=== PATIENT | female | born 1995 | race Caucasian/White ===

== ENCOUNTER 2016-09-11 10:36 | Emergency (ER) | payer OTHER ==
[2016-09-11] MEDS ORDERED: IBUPROFEN 600 MG TABLET PO STA (11:54)
[2016-09-11] MEDS ORDERED: DEXAMETHASONE 10 MG/ML VIAL PO STA (11:54)
[2016-09-11] MEDS ORDERED: CHERRY SYRUP 10 ML UDC PO ONE (11:56)
[2016-09-11] MEDS ORDERED: DEXAMETHASONE 10 MG/ML VIAL ONE (11:56)
[2016-09-11] MEDS ORDERED: IBUPROFEN 600 MG TABLET PO ONE (11:56)
== END 2016-09-11 12:35 | disposition home or self-care (01) ==
DX: N30.10 Interstitial cystitis (chronic) without hematuria (principal)
CPT/HCPCS: 80053; 81001; 81025; 83690; 85025; 87086; 99283; A9270

== ENCOUNTER 2016-10-18 03:41 | Emergency (ER) | payer OTHER | END 2016-10-18 04:09 | disposition home or self-care (01) | DX: B80 Enterobiasis (principal); F17.200 Nicotine dependence, unspecified, uncomplicated ==

== ENCOUNTER 2016-12-19 12:48 | Emergency (ER) | payer OTHER ==
[2016-12-19 12:55] VITALS: BP 141/90
--- NOTE | 2016-12-19 13:02 | ED Physician Documentation ---
PD HPI ABD PAIN - Stated complaint Stated Complaint: FEMALE - Chief complaint Chief Complaint: Abd Pain - History obtained from History obtained from: Patient - History of Present Illness Timing - onset: Other (In September she had a bad UTI which was treated in [facility]. She has been having on and off issues ever since and is being seen here several times. Had a CT which was negative. Most recently she was diagnosed with bacterial vaginosis and treated with MetroGel which helped while she was on it but as soon as it was discontinued, about a week ago, she developed severe burning especially with urination again. She does not really have any discharge.) Review of Systems Constitutional: denies: Fever, Chills GI: denies: Abdominal Pain, Nausea, Vomiting, Diarrhea : reports: Dysuria, Frequency PD PAST MEDICAL HISTORY - Past Medical History Past Medical History: Yes : None Other Past Medical History: BV - Past Surgical History Past Surgical History: Yes - Present Medications Home Medications: Ambulatory Orders Medication Instructions Recorded Confirmed Lactobacillus Acidophilus 1 tab DAILY 12/19/16 12/19/16 [Probiotic Acidophilus] Metronidazole [Flagyl] 500 mg PO BID #14 tablet 12/19/16 - Allergies Allergies/Adverse Reactions: Allergies Allergy/AdvReac Type Severity Reaction Status Date / Time No Known Drug Allergies Allergy Verified 09/11/16 10:40 - Social History Does the pt smoke?: Yes Smoking Status: Current every day smoker Does the pt drink ETOH?: No Does the pt have substance abuse?: No - Immunizations Immunizations are current?: Yes - POLST Patient has POLST: No PD ED PE NORMAL - Vitals Vital signs reviewed: Yes - General General: Alert and oriented X 3, No acute distress - Abdomen Abdomen: Soft, Non tender - Neuro Neuro: Alert and oriented X 3, Normal speech - Psych Psych: Normal mood, Normal affect Results - Vitals Vitals: Vital Signs - 24 hr 12/19/16 12:53 Temperature 36.7 C Heart Rate 99 Respiratory 18 Rate Blood Pressure 141/90 H O2 Saturation 100 Oxygen O2 Source Room air - Labs Labs: Laboratory Tests 12/19/16 12:55 Urine Color YELLOW Urine Clarity CLEAR Urine pH 5.5 Ur Specific [place] 1.010 Urine Protein NEGATIVE Urine Glucose (UA) NEGATIVE Urine Ketones NEGATIVE Urine Occult Blood NEGATIVE Urine Nitrite NEGATIVE Urine Bilirubin NEGATIVE Urine Urobilinogen 0.2 (NORMAL) Ur Leukocyte Esterase NEGATIVE Ur Microscopic Review NOT INDICATED Urine Culture Comments NOT INDICATED Urine HCG, Qual NEGATIVE PD MEDICAL DECISION MAKING - ED course ED course: 21-year-old woman with urinary burning and recent diagnosis of BV, sounds like she failed MetroGel. She declined pelvic examination here after discussion of the benefits for diagnosis and would prefer to follow-up with her physician for recheck if not improved on oral metronidazole. Departure - Departure Disposition: Home, Self Care Clinical Impression: BV (bacterial vaginosis) Condition: Good Record reviewed to determine appropriate education?: Yes Instructions: ED Vaginosis Bacterial Prescriptions: Metronidazole [Flagyl] 500 mg PO BID #14 tablet Comments: Follow-up with your flight surgeon in 3-5 days if not better. Return if worse. Your blood pressure was elevated today on check into the emergency department. This does not mean that you have hypertension, it is a common phenomenon to come to the emergency department and have elevated blood pressure. I recommend that she see her primary care physician within the week to have it rechecked when you are feeling better.
[2016-12-19 13:10] LABS: BILIRUBIN,URINE NEGATIVE (NEGATIVE); PH,URINE 5.5 PH (5.0-7.5)
[2016-12-19 13:15] LABS: HCG UR QUAL NEGATIVE; UA CHARGE (STRIP ONLY) YES; UR CULTURE IF IND NOT INDICATED
== END 2016-12-19 13:33 | disposition home or self-care (01) ==
LOC: ED 12:48
DX: N76.0 Acute vaginitis (principal); B96.89 Other specified bacterial agents as the cause of diseases classified elsewhere; F17.200 Nicotine dependence, unspecified, uncomplicated
CPT/HCPCS: 81001; 81003; 81025; 87086; 99283

== ENCOUNTER 2017-03-06 13:47 | Emergency (ER) | payer OTHER ==
--- NOTE | 2017-03-06 14:47 | ED Physician Documentation ---
PD HPI ABD PAIN - Stated complaint Stated Complaint: 7 WKS PREG/BLEEDING - Chief complaint Chief Complaint: Abd Pain - History obtained from History obtained from: Patient - History of Present Illness Timing - onset: Other ( at 7 weeks gestation with a small amount of vaginal bleeding today and continued symptoms of BV despite repeated treatment. 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, she is active duty .) Review of Systems Constitutional: denies: Fever, Chills GI: denies: Abdominal Pain, Nausea, Vomiting : denies: Dysuria, Frequency, Hesitancy, Incontinent PD PAST MEDICAL HISTORY - Past Medical History Past Medical History: No : None - Past Surgical History Past Surgical History: Yes - Present Medications Home Medications: Ambulatory Orders Medication Instructions Recorded Confirmed Ondansetron [Ondansetron Odt] 4 mg PO DAILY PRN 03/06/17 03/06/17 Pnv No.122/Iron/Folic Acid 1 each PO DAILY 03/06/17 03/06/17 [ Multi Tablet] - Allergies Allergies/Adverse Reactions: Allergies Allergy/AdvReac Type Severity Reaction Status Date / Time No Known Drug Allergies Allergy Verified 03/06/17 13:56 - Social History Does the pt smoke?: No Smoking Status: Never smoker Does the pt drink ETOH?: No Does the pt have substance abuse?: No - Immunizations Immunizations are current?: Yes - POLST Patient has POLST: No PD ED PE NORMAL - Vitals Vital signs reviewed: Yes - General General: Alert and oriented X 3, No acute distress - Abdomen Abdomen: Soft, Non tender, Other (Bedside ultrasound demonstrates single live intrauterine with a heart rate of 130 and no free fluid.) - Female Female : Petrophysical Engineer present (Karla Cornejo RN), Other (cervicitis with modeerate white dischg) - Neuro Neuro: Alert and oriented X 3, Normal speech - Psych Psych: Normal mood, Normal affect Results - Vitals Vitals: Vital Signs - 24 hr 03/06/17 03/06/17 13:51 16:20 Temperature 36.8 C 36.7 C Heart Rate 106 H 86 Respiratory 16 14 Rate Blood Pressure 134/80 H 120/62 O2 Saturation 99 98 Oxygen O2 Source Room air - Labs Labs: Microbiology 03/06/17 15:33 BORIS Preparation - Final Fluid - Vaginal 03/06/17 15:33 Wet Prep - Final Cervix Laboratory Tests 03/06/17 15:00 Urine Color YELLOW Urine Clarity HAZY Urine pH 6.0 Ur Specific [place] 1.025 Urine Protein NEGATIVE Urine Glucose (UA) NEGATIVE Urine Ketones NEGATIVE Urine Occult Blood TRACE-INTA Urine Nitrite NEGATIVE Urine Bilirubin NEGATIVE Urine Urobilinogen 0.2 (NORMAL) Ur Leukocyte Esterase TRACE H Urine RBC 0-5 Urine WBC 4-5 Ur Squamous Epith Cells MOD Squamous H Urine Bacteria Few Urine Mucus Moderate Strands Ur Microscopic Review INDICATED Urine Culture Comments NOT INDICATED PD MEDICAL DECISION MAKING - ED course ED course: 22-year-old G1 with a small amount of vaginal bleeding in and cervicitis with repeated treatments for BV.. Wet mount and BORIS were negative. She will be treated for undifferentiated cervicitis with Rocephin and Zithromax. She is Rh- and is given RhoGam. She does have an intrauterine on bedside ultrasound. Departure - Departure Disposition: 01 Home, Self Care Clinical Impression: Cervicitis, Threatened Condition: Good Record reviewed to determine appropriate education?: Yes Instructions: ED Miscarriage Poss, ED VD Cervicitis Treated Comments: Call your doctor to arrange a follow-up appointment, make the next available appointment. In the interim, return anytime if worse or if new symptoms develop.
[2017-03-06 15:09] LABS: BILIRUBIN,URINE NEGATIVE (NEGATIVE)
[2017-03-06 15:29] LABS: UA w/ MICROSCOPIC CHARGE YES
[2017-03-06 15:45] LABS: UR CULTURE IF IND NOT INDICATED
[2017-03-06] MEDS ORDERED: RHO(D) IMMUNE GLOBULIN 300 MCG SYRINGE IM ONE (16:36)
[2017-03-06] MEDS ORDERED: AZITHROMYCIN 250 MG TABLET PO STA (16:36)
[2017-03-06] MEDS ORDERED: cefTRIAXone 250 MG VIAL IM STA (16:36)
[2017-03-06] MEDS ORDERED: cefTRIAXone 250 MG VIAL ONE (17:07)
[2017-03-06] MEDS ORDERED: LIDOCAINE 1% 2 ML VIAL ONE (17:07)
[2017-03-06] MEDS ORDERED: AZITHROMYCIN 250 MG TABLET PO ONE (17:07)
[2017-03-06 17:20] VITALS: BP 124/63
== END 2017-03-06 17:18 | disposition home or self-care (01) ==
LOC: ED 13:47
DX: O23.511 Infections of cervix in pregnancy, first trimester (principal); O20.0 Threatened abortion; Z3A.01 Less than 8 weeks gestation of pregnancy
CPT/HCPCS: 36415; 81001; 86900; 86901; 87210; 87220; 87491; 87591; 96372; 99283; A9270; 81003; 87086

== ENCOUNTER 2017-10-14 19:26 | Outpatient (CLI) | payer OTHER ==
[2017-10-14 20:00] VITALS: BP 121/80
== END 2017-10-14 21:15 | disposition home or self-care (01) ==
LOC: WFO 19:26 → FBP 19:28 → WFO 21:15
PROVIDERS: ATTEND Obstetrics & Gynecology
DX: Z34.03 Encounter for supervision of normal first pregnancy, third trimester (principal)
CPT/HCPCS: 99212

== ENCOUNTER 2017-10-20 07:13 | Inpatient (IN) | payer OTHER ==
[2017-10-20] MEDS ORDERED: SODIUM CHLORIDE FLUSH 0.9% 10 ML SYRINGE IVP PRN (08:07)
[2017-10-20 08:50] LABS: BASOPHILS # (AUTO) 0.1 10^3/uL (0.0-0.1); BASOPHILS % (AUTO) 0.5 %; EOSINOPHILS # (AUTO) 0.1 10^3/uL (0.0-0.7); EOSINOPHILS % (AUTO) 0.5 %; HGB - HEMOGLOBIN 13.6 g/dL (12.0-16.0); LYMPHOCYTES # (AUTO) 1.8 10^3/uL (1.5-3.5); LYMPHOCYTES % (AUTO) 12.8 %; MEAN CORPUSCULAR HEMOGLOBIN 30.7 pg (27.0-31.0); MEAN CORPUSCULAR HGB CONC 34.9 g/dL (32.0-36.0); MEAN PLATELET VOLUME 8.7 fL (7.9-10.8); MONOCYTES # (AUTO) 0.9 10^3/uL (0.0-1.0); MONOCYTES % (AUTO) 6.7 %; NEUTROPHILS # (AUTO) 10.9 10^3/uL (1.5-6.6); NEUTROPHILS % (AUTO) 79.5 %; PLT - PLATELET COUNT 192 10^3/uL (130-450); RED BLOOD COUNT 4.43 10^6/uL (4.20-5.40); RED CELL DISTRIBUTION WIDTH 13.3 % (12.0-15.0); WHITE BLOOD COUNT 13.7 x10^3/uL (4.8-10.8)
[2017-10-20] MEDS ORDERED: miSOPROStol 200 MCG TABLET ONE (11:46)
[2017-10-20] MEDS ORDERED: LIDOCAINE 1% 50 ML MDV ONE (11:46)
[2017-10-20] MEDS ORDERED: OXYTOCIN/SODIUM CHLORIDE 500 ML IV ONE ×2 (11:46→18:35)
[2017-10-20] MEDS: LACTATED RINGERS 1,000 ML IV SCH ×2 (11:56→13:06)
[2017-10-20] MEDS: SODIUM CHLORIDE FLUSH 0.9% 10 ML SYRINGE IVP SCH ×2 (11:56→20:21)
--- NOTE | 2017-10-20 12:09 | PROVIDER PROGRESS NOTE ---
Labor Progress Note - Uterine Monitoring Uterine Monitoring Mode: positive: External toco Contraction Frequency (min/apart): 3 Contraction Intensity: positive: Strong Uterine Resting Tone: positive: Soft - Monitoring Monitor Mode: positive: External ultrasound Heart Rate Baseline: 130 Heart Rate Variability: positive: Moderate (6-25 bmp) Accelerations: positive: Present, 15x15 Decelerations: positive: None Strip Review: positive: Category I - Vaginal Exam Dilation (in cm): 6 Effacement (%): 100 - Labor Progress Note Labor Progress Note/Additional Text: Pt is spontaneously with dilatation. requests epidural.
[2017-10-20] MEDS ORDERED: BUPIVACAINE 0.75% MPF 30 ML VIAL ONE (12:49)
[2017-10-20] MEDS ORDERED: fent/BUPIV 2 MCG/0.125% 250 ML EP ONE (12:49)
[2017-10-20] MEDS ORDERED: fent/BUPIV 2 MCG/0.125% 250 ML EP PRN (13:21)
[2017-10-20] MEDS ORDERED: LACTATED RINGERS 500 ML IV ONE (13:21)
[2017-10-20] MEDS ORDERED: ONDANSETRON 4 MG/2 ML VIAL IVP PRN (13:21)
[2017-10-20] MEDS ORDERED: NALBUPHINE 20 MG/ML AMP IVP PRN (13:21)
[2017-10-20] MEDS ORDERED: ePHEDrine 50 MG/ML VIAL IVP PRN (13:21)
[2017-10-20] MEDS ORDERED: diphenhydrAMINE INJ 50 MG/ML VIAL IVP PRN (13:21)
[2017-10-20] MEDS ORDERED: METOCLOPRAMIDE 10 MG/2 ML VIAL IVP PRN (13:21)
[2017-10-20] MEDS ORDERED: NALOXONE 0.4 MG/ML VIAL IVP PRN (13:21)
--- NOTE | 2017-10-20 17:21 | PROVIDER PROGRESS NOTE ---
Labor Progress Note - Uterine Monitoring Uterine Monitoring Mode: positive: External toco Contraction Frequency (min/apart): 3-4 Contraction Intensity: positive: Strong Uterine Resting Tone: positive: Soft - Monitoring Monitor Mode: positive: External ultrasound Heart Rate Baseline: 125 Heart Rate Variability: positive: Moderate (6-25 bmp) Accelerations: positive: Present, 15x15 Decelerations: positive: None Strip Review: positive: Category I - Vaginal Exam Dilation (in cm): c Effacement (%): c Station: 2 Cervical Position: Anterior ([place]) - Labor Progress Note Labor Progress Note/Additional Text: AROM clear at about 1545 will start pushing
[2017-10-20] MEDS ORDERED: diphenhydrAMINE 25 MG CAPSULE PO PRN (18:31)
[2017-10-20] MEDS ORDERED: WITCH HAZEL/GLYCERIN 1 EACH MED..PAD TOP PRN (18:31)
[2017-10-20] MEDS ORDERED: HYDROCORTISONE 1% CREAM 28 GM TUBE PR PRN (18:31)
[2017-10-20] MEDS ORDERED: OXYTOCIN/SODIUM CHLORIDE 250 ML IV ONE (18:31)
--- NOTE | 2017-10-20 18:38 | DELIVERY NOTE ---
Delivery Note - Infant Delivery Method Infant Delivery Method: positive: Spontaneous vaginal delivery - Presentation Presentation: positive: Vertex, HAFSA - right occiput anterior - Nuchal Cord Nuchal Cord: positive: Present (times one. Delivered thru the cord.) - Anesthetic Anesthetic Type: Anesthetic: positive: Lidocaine - 1% plain (12 ml for MLE) - Amniotic Fluid Description Amniotic Fluid Description: positive: Clear - Episiotomy Type Episiotomy Type: positive: Left mediolateral (Second degree) - Laceration Laceration: positive: Vaginal (Bilateral lateral posterior vagianl) - Suture Suture Type: positive: Vicryl Suture Size: positive: 3-0 - Delivery Outcome Delivery Outcome: positive: Livebirth (female) - University: positive: Placed in direct skin contact with mother, Bulb syringe, Stimulated, Warmed, [place] used University sex: positive: Female (Apgars 9/9) - Cord Cord: positive: 3 vessels - Placenta Placenta: positive: Intact, Spontaneous - Estimated Blood Loss Estimated Blood Loss (in cc): 400 - Delivery Comments (Free Text/Narrative) Delivery Comments (Free Text/Narrative): Pt reached complete at 1715, strong pushing and at 17 47 following a 32 min second stage a live female was delivered with very tight introitis. Left MLE cut with out extensions. because of tight nucal cord which was unable to be reduced the baby was delivered thru the cord. Placenta soon followed complete. repaired of the vagianl wall laceration and episotomy with 3-0 vicril. EBL 400 ml. baby weighed 6lb 12oz
[2017-10-20] MEDS ORDERED: LACTATED RINGERS 1,000 ML IV SCH (19:00)
--- NOTE | 2017-10-20 19:00 | HISTORY & PHYSICAL EXAMINATION ---
Admit History - Instructions [place]/Slash: -Left hand click circles element as positive or present. -Right hand click slashes element as negative or not present. - Visit Reason Visit Reason: Contractions - : 1 Parity: 0 Premature: 0 Ectopic: 0 : 0 Care: positive: [place] Smoking Status: Never smoker - Mother's Labs Mother's Blood Type: positive: O Mother's RH: positive: Negative (recived Rhogam) GBS: positive: Group B Step Negative Rubella Status: positive: Immune (50 gm 153. # hr Gtt 70,151,112,109) Meds/Allgy - Home Medications Home Medications: Ambulatory Orders Medication Instructions Recorded Confirmed Ondansetron [Ondansetron Odt] 4 mg PO DAILY PRN 03/06/17 03/06/17 Pnv No.122/Iron/Folic Acid 1 each PO DAILY 03/06/17 03/06/17 [ Multi Tablet] - Allergies Allergies/Adverse Reactions: Allergies Allergy/AdvReac Type Severity Reaction Status Date / Time No Known Drug Allergies Allergy Verified 03/06/17 13:56 Physical - Abdominal Exam Vital Signs: Temp Pulse Resp BP Pulse Ox 36.9 C 83 16 115/72 10/20/17 07:20 10/20/17 07:20 10/20/17 07:20 10/20/17 07:20 Contraction Intensity: positive: Strong Uterine Resting Tone: positive: Soft - Monitoring Strip Review: positive: Category I - Presentation Presentation: positive: Vertex - Vaginal Exam Membranes: positive: Membranes intact Dilation (in cm): 4 Effacement (%): 100% Station: positive: -3 - Speculum Exam Findings: positive: Other - Other Notes Labor Progress Note/Additional Text: Pt is a 22 yo EDC 24 Oct 2017, 39.3 weeks Active labor. Ob course unremarkable except for elivated 50 gm with normal 3 hr GTT. Pt is O - adn recieved rhogam. Pt reports FOB Rh negative. L&D at [facility] closed so pt presents to [facility] for Delivery.
[2017-10-20] MEDS: ACETAMINOPHEN 500 MG TABLET PO SCH (19:59)
[2017-10-20] MEDS: IBUPROFEN 800 MG TABLET PO SCH (19:59)
[2017-10-20] MEDS: HYDROCORTISONE/PRAMOXINE 10 GM PR PRN (20:00)
[2017-10-20] MEDS: oxyCODONE 5 MG TABLET PO PRN (20:27)
[2017-10-20] MEDS: DOCUSATE SODIUM 100 MG CAPSULE PO SCH (21:30)
[2017-10-20] MEDS ORDERED: SODIUM CHLORIDE FLUSH 0.9% 10 ML SYRINGE ONE (23:41)
[2017-10-21] MEDS: IBUPROFEN 800 MG TABLET PO SCH ×3 (01:38→13:36)
[2017-10-21] MEDS: ACETAMINOPHEN 500 MG TABLET PO SCH ×3 (04:37→17:30)
[2017-10-21 06:24] LABS: BASOPHILS % (AUTO) 0.3 %; EOSINOPHILS # (AUTO) 0.1 10^3/uL (0.0-0.7); EOSINOPHILS % (AUTO) 0.4 %; HGB - HEMOGLOBIN 10.5 g/dL (12.0-16.0); LYMPHOCYTES # (AUTO) 1.7 10^3/uL (1.5-3.5); MEAN CORPUSCULAR HEMOGLOBIN 30.4 pg (27.0-31.0); MEAN CORPUSCULAR HGB CONC 33.9 g/dL (32.0-36.0); MEAN CORPUSCULAR VOLUME 89.8 fL (81.0-99.0); MEAN PLATELET VOLUME 8.9 fL (7.9-10.8); MONOCYTES # (AUTO) 1.2 10^3/uL (0.0-1.0); MONOCYTES % (AUTO) 10.1 %; NEUTROPHILS # (AUTO) 9.2 10^3/uL (1.5-6.6); NEUTROPHILS % (AUTO) 75.2 %; PLT - PLATELET COUNT 158 10^3/uL (130-450); RED BLOOD COUNT 3.45 10^6/uL (4.20-5.40); RED CELL DISTRIBUTION WIDTH 13.2 % (12.0-15.0); WHITE BLOOD COUNT 12.2 x10^3/uL (4.8-10.8)
[2017-10-21] MEDS: SIMETHICONE CHEW 80 MG TABLET PO SCH ×3 (07:50→17:30)
[2017-10-21] MEDS: DOCUSATE SODIUM 100 MG CAPSULE PO SCH (07:50)
--- NOTE | 2017-10-21 08:58 | PROVIDER PROGRESS NOTE ---
Subjective - Prog Note Date Prog Note Date: 10/21/17 Prog Note Time: 08:56 - Subjective Pt reports feeling: Improved (Pain 06/22. Pt is not breast feeding reviewed reasions to breastfeed. [place] improving) Objective - Vital Signs/Intake & Output Reviewed Vital Signs: Yes Intake & Output: Intake & Output 10/18/17 10/19/17 10/20/17 10/21/17 23:59 23:59 23:59 23:59 Intake Total 4860 Output Total 2180 550 Balance 2680 -550 - Objective General Appearance: positive: No acute distress, Alert Respiratory: positive: Chest non-tender, No respiratory distress, Breath sounds nml Cardiovascular: positive: Regular rate & rhythm, No murmur, No gallop Abdomen: positive: Non-tender, Mass (U-2) Back: negative: CVA tenderness (R), CVA tenderness (L) Extremities: positive: Calf tenderness, Sarah's sign/cords Neurologic/Psychiatric: positive: Oriented x3, CN's nml (2-12) - Lab Results Fish Bones: 10/21/17 05:31 Other Labs: Lab Results x24hrs 10/21/17 10/20/17 10/20/17 Range/Units 05:31 08:28 08:28 WBC 12.2 H 13.7 H (4.8-10.8) x10^3/uL RBC 3.45 L 4.43 (4.20-5.40) 10^6/uL Hgb 10.5 L 13.6 (12.0-16.0) g/dL Hct 31.0 L 39.0 (37.0-47.0) % MCV 89.8 88.0 (81.0-99.0) fL MCH 30.4 30.7 (27.0-31.0) pg MCHC 33.9 34.9 (32.0-36.0) g/dL RDW 13.2 13.3 (12.0-15.0) % Plt Count 158 192 (130-450) 10^3/uL MPV 8.9 8.7 (7.9-10.8) fL Neut # 9.2 H 10.9 H (1.5-6.6) 10^3/uL Lymph # 1.7 1.8 (1.5-3.5) 10^3/uL [place] # 1.2 H 0.9 (0.0-1.0) 10^3/uL Eos # 0.1 0.1 (0.0-0.7) 10^3/uL Baso # 0.0 0.1 (0.0-0.1) 10^3/uL Absolute Nucleated RBC 0.00 0.00 x10^3/uL Nucleated RBC % 0.0 0.0 /100WBC Blood Type O NEGATIVE Antibody Screen POSITIVE Antibody Identification See Comments Assessment/Plan - Problem List (1) (spontaneous vaginal delivery) Impression: Pt is doing well. Pt does not need Contraception.
--- NOTE | 2017-10-21 11:17 | ANESTHESIA POST OP EVALUATION ---
Anesthesia Post Eval - Post Anesthesia Eval CV Function Including HR & BP: positive: Stable Pain Control: positive: Adequate Nausea & Vomiting: positive: Negative Mental Status: positive: Appropriate Anesthesia Complications: positive: None (Patient resting comfortably with baby at side. States was uneventful to the best of her knowledge and that she was happy with her epidural. Denies pain at site.)
[2017-10-21] MEDS: oxyCODONE 5 MG TABLET PO PRN (12:01)
[2017-10-22] MEDS: IBUPROFEN 800 MG TABLET PO SCH ×2 (00:18→09:17)
[2017-10-22] MEDS: DOCUSATE SODIUM 100 MG CAPSULE PO SCH ×2 (00:19→09:17)
[2017-10-22] MEDS: SIMETHICONE CHEW 80 MG TABLET PO SCH ×2 (03:53→09:17)
[2017-10-22] MEDS: ACETAMINOPHEN 500 MG TABLET PO SCH (05:00)
[2017-10-22 08:38] VITALS: BP 112/72
[2017-10-22] MEDS: HYDROCORTISONE/PRAMOXINE 10 GM PR PRN (09:18)
--- NOTE | 2017-10-22 10:02 | DISCHARGE SUMMARY ---
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 Basic obstetrics labs: Blood type O- antibody screen negative; chlamydia GC negative; urinalysis normal ; wet mount normal, hepatitis B surface antigen negative hepatitis C negative RPR negative rubella immune 1 hour glucose challenge test 151 3 hour negative.Reference records. She presents in active labor to [facility] labor and delivery. She was evaluated by Dr. Haddad reference his admission H&P. - CONSULTS | PROCEDURES Procedures: Manually assisted vaginal delivery of a living female ; repair of second- degree laceration (Dr. Osvaldo Winter) - HOSPITAL COURSE Hospital Course: Patient was admitted with a reassuring heart tones and allowed to labor. Epidural was placed. She underwent an uneventful delivery of a living female weighing 6 pounds 11.7 ounces (3054 g), scoring Apgars of 9/9. There was a minor laceration repair. Baby was named Laron. Patient was given supportive care in the .. She rapidly advanced diet and full activity. She chose to bottle feed. Patient's lesbian partner was supportive. On post delivery day 2 patient was ready for discharge. She was given complete wound care and self-care instructions. Warning and callback instructions were reviewed. was cleared by Dr. Jacome for discharge. blood type O- therefore RhoGam not required - ALLERGIES Allergies/Adverse Reactions: Allergies Allergy/AdvReac Type Severity Reaction Status Date / Time No Known Drug Allergies Allergy Verified 03/06/17 13:56 - MEDICATIONS Home Medications: Ambulatory Orders Medication Instructions Recorded Confirmed Ondansetron [Ondansetron Odt] 4 mg PO DAILY PRN 03/06/17 03/06/17 Pnv No.122/Iron/Folic Acid 1 each PO DAILY 03/06/17 03/06/17 [ Multi Tablet] - PHYSICAL EXAM AT DISCHARGE General Appearance: positive: No acute distress, Alert Eyes Bilateral: positive: EOMI, Conjunctivae nml ENT: positive: No signs of dehydration Neck: positive: Other (Supple) Abdomen: positive: Non-tender, Other (Uterus firm nontender 17 week size) Extremities: positive: Non-tender, Full ROM, No pedal edema Neurologic/Psychiatric: positive: Oriented x3, Motor nml, Sensation nml, Mood/ affect nml - LABS Result Diagrams: 10/21/17 05:31 - FOLLOW UP Follow Up: Patient will follow up with Dr. Beltran in 2 weeks for perineum check and assessment of depression. After that she will return to the [place] clinic for her regular gynecologic care - TIME SPENT Time Spent in Discharge (Minutes): 25"
--- NOTE | 2017-10-22 11:03 | Labor Flowsheet ---
Labor Flowsheet Datetime Report Generated by CPN: 10/22/2017 11:03 Datetime: 10/22/2017 07:54 Pulse: 86 SpO2 (%): 99 LaborFlag: Labor Datetime: 10/22/2017 07:53 VITAL SIGNS NBP Sys/Vijaya/Mean (mmHg): 112 : 72 : 81 Datetime: 10/20/2017 17:47 STAGE 2 Pushing: Coached on Pushing Pushing Progress: Descent with Pushing Stage 2 Comments: beautiful Datetime: 10/20/2017 17:15 FHR Baseline Changes: No Baseline Change Variability: Moderate 6-25 bpm Accelerations: 15X15 Decelerations: None Category: Category I VAGINAL EXAM Dilatation (cm): 10.0 Effacement (%): 100 Station: 2 Exam by: Dr Beltran Oxygen Method: Room Air Pushing Position: Pushing with Contractions Datetime: 10/20/2017 17:09 Stage of : Labor Provider Reviewed Strip: Yes COMMUNICATION Communication: Provider at Bedside Notification Reason: Status Update Communication Comments: DR Beltran here - pt will be delivering soon Datetime: 10/20/2017 17:00 Vaginal Bleeding: Normal Show Cervix, Consistency: Soft Cervix, Position: Anterior Vaginal Exam Comments: Ant lip - bladder emptied - plan reassess in 30 min I/O Interventions: Straight Cath (ml) @ 500 Anesthesia Level Check: T10- Umbilicus Anesthesia Comments: pt uncomortable - top up given by Casimiro Mathur [employer] Datetime: 10/20/2017 16:30 UTERINE ACTIVITY Monitor Mode: External Frequency (min): Q3 Quality: Moderate Duration (sec): 40-60 Pattern: Normal: <= 5 Contractions in 10 Minutes Resting Tone (Palpate): Relaxed ASSESSMENT A Monitor Mode: External US FHR Baseline Rate : 125 Datetime: 10/20/2017 15:50 ANESTHESIA Anesthesia Plans: Epidural Datetime: 10/20/2017 15:45 Membrane Status: Ruptured Membranes Rupture Method: Artificial Amniotic Fluid Color: Bloody Amniotic Fluid Amount: Moderate Amniotic Fluid Odor: Normal Position 'A': Right Occipital Transverse Membrane Comments: Dr Beltran here to see pt. AROM performed for clear but blood tinged fluid. Datetime: 10/20/2017 15:15 Lie 'A': Longitudinal Hygiene: Sailaja Care Datetime: 10/20/2017 15:00 Temperature (C): 36.7 Datetime: 10/20/2017 14:00 Temperature Route: Oral Datetime: 10/20/2017 13:00 PAIN Pain Scale: 4 Pain Presence: None/Denies Pain Type: Cramping Pain Location: Abdomen Pain Relief Measures: Epidural Given Pain Coping: Talking Through Contractions MATERNAL ASSESSMENT Level of Consciousness: Fully Conscious Headache: Denies Nausea/Vomiting: Denies RUQ Epigastric Pain: Denies Patient Position/Activity: HOB Lowered TEACHING Labor/Induction: Labor Stages Datetime: 10/20/2017 12:32 Epidural Procedure: Loading Dose; Completed Epidural Procedure Other: Pump Started Datetime: 10/20/2017 12:26 Comments: pt back to bed. Drop in B/P. Ephedrine given by M Aube [employer] Datetime: 10/20/2017 12:25 PROCEDURE TIME OUT Procedure Type: epidural Datetime: 10/20/2017 12:15 Procedure Verify: Correct Patient Identity; Accurate Procedure Consent Form; Agreement on Procedure to be Done; Correct Patient Position; Addressed Need to Administer Antibiotics or Fluids for Irrigat ion; Safety Precautions Based on Patient History or Medication Use Epidural Positioning: Sitting Datetime: 10/20/2017 12:00 Strip Reviewed by: Giem Datetime: 10/20/2017 11:50 Respirations: 20 Pain Assessment Comments: pt wants her epidural. DTR's/Clonus: DTRs 1+ PATIENT CARE IV/Blood Work: IV Bolus Started Comfort Measures: Breathing/Relaxation; Coaching
--- NOTE | 2017-10-22 11:17 | Discharge Plan ---
Discharge Plan Disposition: 01 Home, Self Care Condition: Good Diet: Regular Activity Restrictions: Activity as Tolerated Shower Restrictions: No Driving Restrictions: No Weight Bearing: Full Weight No Smoking: If you smoke, Please STOP! Call for help. Follow-up with: Osvaldo Beltran MD [Provider Admit Priv/Credential] -
== END 2017-10-22 10:10 | disposition home or self-care (01) | DRG 775 ==
LOC: WFO 07:13 → FBP 07:58 → WFO 08:06 → FBP 08:07
PROVIDERS: ADMIT Obstetrics & Gynecology; ATTEND Obstetrics & Gynecology
PROC: 10E0XZZ Delivery of Products of Conception, External Approach (ICD-10-PCS; principal; 2017-10-20)
PROC: 0KQM0ZZ Repair Perineum Muscle, Open Approach (ICD-10-PCS; 2017-10-20)
PROC: 0W8NXZZ Division of Female Perineum, External Approach (ICD-10-PCS; 2017-10-20)
PROC: 10907ZC Drainage of Amniotic Fluid, Therapeutic from Products of Conception, Via Natural or Artificial Opening (ICD-10-PCS; 2017-10-20)
DX: O26.893 Other specified pregnancy related conditions, third trimester (principal); Z37.0 Single live birth; Z67.41 Type O blood, Rh negative; Z3A.39 39 weeks gestation of pregnancy; O69.81X0 Labor and delivery complicated by cord around neck, without compression, not applicable or unspecified; O99.89 Other specified diseases and conditions complicating pregnancy, childbirth and the puerperium; N89.6 Tight hymenal ring; O70.1 Second degree perineal laceration during delivery
CPT/HCPCS: 36415; 85025; 86850; 86870; 86900; 86901; 99212

== ENCOUNTER 2018-02-01 08:08 | Emergency (ER) | payer OTHER ==
[2018-02-01 08:15] VITALS: BP 137/79
[2018-02-01] MEDS ORDERED: DEXAMETHASONE 10 MG/ML VIAL PO STA (08:33)
--- NOTE | 2018-02-01 08:36 | ED Physician Documentation ---
PD HPI HEENT - Stated complaint Stated Complaint: SORE THROAT - Chief complaint Chief Complaint: Heent - History obtained from History obtained from: Patient - History of Present Illness Timing - onset: How many weeks ago (1) Timing - duration: Weeks (1) Timing - details: Gradual onset, Still present Location: Throat Improves: Medication Worsens: Swalllowing Associated symptoms: Congestion, Swollen nodes, Cough Similar symptoms before: Diagnosis (strep) Recently seen: Not recently seen - Additional information Additional information: 22 y/o female with a one week history of sore throat with cough and trouble swallowing [place]. Review of Systems Constitutional: denies: Fever Eyes: denies: Decreased vision Ears: denies: Ear pain Nose: reports: Congestion Throat: reports: Sore throat Cardiac: denies: Chest pain / pressure, Palpitations Respiratory: reports: Cough. denies: Dyspnea GI: denies: Abdominal Pain, Nausea, Vomiting : denies: Dysuria, Frequency PD PAST MEDICAL HISTORY - Past Medical History : None - Past Surgical History Past Surgical History: Yes - Present Medications Home Medications: Ambulatory Orders Medication Instructions Recorded Confirmed Azithromycin [Zithromax] 250 mg PO DAILY #6 tablet 02/01/18 - Allergies Allergies/Adverse Reactions: Allergies Allergy/AdvReac Type Severity Reaction Status Date / Time No Known Drug Allergies Allergy Verified 02/01/18 08:15 - Social History Does the pt smoke?: No Smoking Status: Never smoker Does the pt drink ETOH?: No Does the pt have substance abuse?: No - Immunizations Immunizations are current?: Yes - POLST Patient has POLST: No PD ED PE NORMAL - Vitals Vital signs reviewed: Yes (hypertensive mild ) - General General: Alert and oriented X 3, No acute distress, Well developed/nourished - HEENT HEENT: Atraumatic, PERRL, EOMI, Other (There is cerumen obstructing the right. This is removed with no evidence of inflamation. The left TM is clear as well. 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, No motor deficit, No sensory deficit, Normal speech Eye Opening: Spontaneous Motor: Obeys Commands Verbal: Oriented GCS Score: 15 - Psych Psych: Normal mood, Normal affect Results - Vitals Vitals: Vital Signs - 24 hr 02/01/18 08:13 Temperature 36.4 C L Heart Rate 90 Respiratory 14 Rate Blood Pressure 137/79 H O2 Saturation 100 Oxygen O2 Source Room air - Labs Labs: Laboratory Tests 02/01/18 08:18 Group A Strep Rapid Negative PD MEDICAL DECISION MAKING - ED course Complexity details: reviewed results, considered differential, d/w patient ED course: 22-year-old female with cryptic tonsils with exudate as a rapid strep that is negative and she is administered dexamethasone 10 mg orally. We will place her on some azithromycin and she has been encouraged to continue debridement of the tonsils with gargling with warm saline. - Sepsis Event Vital Signs: Vital Signs - 24 hr 02/01/18 08:13 Temperature 36.4 C L Heart Rate 90 Respiratory 14 Rate Blood Pressure 137/79 H O2 Saturation 100 Oxygen O2 Source Room air Departure - Departure Disposition: 01 Home, Self Care Clinical Impression: Tonsillitis with exudate Condition: Stable Instructions: ED Tonsillitis Follow-Up: RISHABH HUGHES [Primary Care Provider] - Prescriptions: Azithromycin [Zithromax] 250 mg PO DAILY #6 tablet Forms: Activity restrictions
== END 2018-02-01 08:45 | disposition home or self-care (01) ==
LOC: ED 08:08
DX: J03.90 Acute tonsillitis, unspecified (principal); H61.21 Impacted cerumen, right ear
CPT/HCPCS: 69210; 87070; 87430; 99283

== ENCOUNTER 2019-12-12 10:09 | Outpatient (CLI) | payer OTHER ==
--- NOTE | 2019-12-12 11:35 | MRI Report ---
PROCEDURE: Lumbar Spine W/O INDICATIONS: LOW BACK PAIN, RADICULOPATHY TECHNIQUE: Noncontrast sagittal T1 spin echo and T2 fast echo, sagittal STIR, axial T1 and T2 fast spin echo thr ough the lumbar spine. In cases with scoliosis, additional coronal T2 fast spin echo may be performe d. COMPARISON: None. FINDINGS: Image quality: Excellent. There is an approximately 1.2 x 2.2 cm T2 hyperintense space occupying mass lesion dorsal to the dist al conus at the L1 level (series 701 image 39 and series 401 image 7). This ventrally displaces the d istal cord in addition to producing dorsal flattening of the cord. This lesion has broad differential considerations. Contrast enhanced imaging is recommended. There is no spinal canal or neural foraminal stenosis otherwise. No evidence of an additional intradu ral lesion. Normal position of the conus. Prevertebral and paraspinous soft tissues unremarkable. Nor mal vertebral body height, alignment, and signal intensity. Intervertebral discs are unremarkable. 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 This lesion has broad differential considerations whi ch include neoplasm. Follow-up MRI of the lumbar spine recommended, with and without IV contrast. Reviewed by: Tony Manning MD on 12/12/2019 11:33 AM PDT Approved by: Tony Manning MD on 12/12/2019 11:33 AM PDT Station ID: [id number]
== END 2019-12-12 10:10 | disposition home or self-care (01) ==
LOC: DI 10:09
PROVIDERS: ATTEND Family Medicine
DX: M53.87 Other specified dorsopathies, lumbosacral region (principal)
CPT/HCPCS: 72148

== ENCOUNTER 2021-10-25 08:00 | Outpatient (CLI) | payer OTHER | END 2021-10-25 23:59 | disposition home or self-care (01) | LOC: LAB.N 08:00 | PROVIDERS: ATTEND Nurse Practitioner | DX: U07.1 COVID-19 (principal) ==

== ENCOUNTER 2023-07-25 08:15 | Outpatient (CLI) | payer OTHER ==
--- NOTE | 2023-07-25 17:18 | XRAY Report ---
PROCEDURE: Chest 2V INDICATIONS: BRONCHITIS TECHNIQUE: 2 views of the chest were acquired. COMPARISON: None. FINDINGS: Surgical changes and devices: None. Lungs and pleura: No pleural effusions or pneumothorax. Lungs are clear. Mediastinum: Mediastinal contours appear normal. Heart size is normal. Bones and chest wall: No suspicious bony lesions. Overlying soft tissues appear unremarkable. IMPRESSION: No acute cardiopulmonary process. Reviewed by: Marcio Little MD on 07/25/2023 5:17 PM PST Approved by: Marcio Little MD on 07/25/2023 5:17 PM PST Station ID: [id number]
== END 2023-07-25 08:30 | disposition home or self-care (01) ==
LOC: DI.N 08:15
PROVIDERS: ATTEND Physician Assistant Medical
DX: J40 Bronchitis, not specified as acute or chronic (principal)